=== PATIENT | female | born 1975 | race Two or more races ===

== ENCOUNTER 2018-04-26 14:38 | Emergency (ER) | payer SELFPAY ==
[~2018-04-26] VITALS: Ht 160 cm; Wt 113.4 kg
[2018-04-26 15:10] VITALS: BP 126/60
[2018-04-26 15:32] LABS: BILIRUBIN,URINE NEGATIVE (NEG); CLARITY,URINE CLEAR; NITRITE,URINE NEGATIVE (NEG); PROTEIN,URINE NEGATIVE (NEG-TRACE); UROBILINOGEN,URINE 0.2 mg/dL (0.2 mg/dL)
[2018-04-26] MEDS ORDERED: IV NORMAL SALINE 1000ML BAG 1,000 ML IV ONE (15:45)
[2018-04-26] MEDS ORDERED: ALBUTEROL SULFATE 2.5 MG/3 ML NEBU. NEB ONE (15:45)
--- NOTE | 2018-04-26 15:48 | PHYS DOC ---
Past Medical History Past Medical History: No Pertinent History Past Surgical History: No Surgical History Alcohol Use: None Drug Use: None Adult General Chief Complaint Chief Complaint: FEVER HPI HPI Patient is a 42 year old female who presents to emergency room with complaints of a fever for the last 5 days. She states that this morning she vomited 2 and complains of epigastric pain. Pain is currently a 9 out of 10 on pain scale. She reports burning with urination and denies any foul odor to her urine. She also reports low back pain with shortness of breath, headache, sore throat, and mild ear pain. She denies any runny nose, nasal congestion, cough, or diarrhea. She states that she last took 800 mg of ibuprofen this morning for relief of her fever. She states that ibuprofen helps to relieve the fever for about 6 hours but then it wears off Review of Systems Review of Systems Constitutional: Reports fever and chills x5 days [] Eyes: Denies change in visual acuity, redness, or eye pain [] HENT: Denies nasal congestion, reports sore throat, and ear pain Respiratory: Denies cough or wheezing, reports shortness of breath with activity Cardiovascular: Denies chest pain GI: Denies bloody stools or diarrhea; reports epigastric abdominal pain with nausea and vomiting x2 today : Denies hematuria, foul smelling urine, or increased frequency, reports dysuria [] Integument: Denies rash or skin lesions [] Neurologic: Denies focal weakness or sensory changes, reports frontal headache Current Medications Current Medications Current Medications Medications (Trade) Dose Ordered Sig/Nii Start Time Stop Time Status Last Admin Dose Admin Acetaminophen (Tylenol) 1,000 mg 1X ONCE 04/26/18 16:15 04/26/18 16:16 DC 04/26/18 16:01 1,000 MG Albuterol Sulfate (Ventolin Neb Soln) 2.5 mg 1X ONCE 04/26/18 15:45 04/26/18 15:46 DC 04/26/18 16:25 2.5 MG Ceftriaxone Sodium 50 ml @ 100 mls/hr 1X ONCE 04/26/18 17:00 04/26/18 17:29 DC 04/26/18 17:00 100 MLS/HR Morphine Sulfate (Morphine Sulfate) 4 mg 1X ONCE 04/26/18 16:15 04/26/18 16:16 DC 04/26/18 16:02 4 MG Ondansetron HCl (Zofran) 4 mg 1X ONCE 04/26/18 16:15 04/26/18 16:16 DC 04/26/18 16:01 4 MG Sodium Chloride 1,000 ml @ 1,000 mls/hr 1X ONCE 04/26/18 15:45 04/26/18 16:44 DC 04/26/18 16:01 1,000 MLS/HR Allergies Allergies Allergies Coded Allergies Type Severity Reaction Last Updated Verified No Known Drug Allergies 04/26/18 No Physical Exam Physical Exam Constitutional: Well developed, well nourished, no acute distress, non-toxic appearance, obese. [] HENT: Normocephalic, atraumatic, bilateral external ears normal, bilateral TM's normal, oropharynx moist, no oral exudates, nose normal. [] Eyes: PERRLA, conjunctiva normal, no discharge. [] Neck: Normal range of motion, no tenderness, supple, no stridor. [] Cardiovascular:Heart rate regular rhythm, no murmur [] Lungs & Thorax: Bilateral breath sounds clear to auscultation, diminished in posterior bases bilat [] Abdomen: Bowel sounds normal, soft, no masses, no pulsatile masses; epigastric tenderness to palpation, RLQ tender to palpation. Skin: Warm, dry, no erythema, no rash. [] Back: R CVA tenderness, R flank pain Extremities: No no cyanosis, ROM intact, no edema. [] Neurologic: Alert and oriented X 3, normal motor function, normal sensory function, no focal deficits noted. [] Psychologic: Affect normal, judgement normal, mood normal. [] Current Patient Data Vital Signs Vital Signs Date Time Temp Pulse Resp B/P (MAP) Pulse Ox O2 Delivery O2 Flow Rate FiO2 04/26/18 16:26 Room Air 04/26/18 16:02 20 98 04/26/18 15:10 101.2 105 126/60 (82) 101.2 Lab Values Laboratory Tests Test 04/26/18 15:05 04/26/18 15:17 04/26/18 15:50 Urine Collection Type Void Urine Color [place] Urine Clarity Clear Urine pH 7.0 Urine Specific [place] <=1.005 Urine Protein Negative mg/dL (NEG-TRACE) Urine Glucose (UA) Negative mg/dL (NEG) Urine Ketones (Stick) Negative mg/dL (NEG) Urine Blood Large (NEG) Urine Nitrite Negative (NEG) Urine Bilirubin Negative (NEG) Urine Urobilinogen Dipstick 0.2 mg/dL (0.2 mg/dL) Urine Leukocyte Esterase Small (NEG) Urine RBC 11-20 /HPF (0-2) Urine WBC Occ /HPF (0-4) Urine Squamous Epithelial Cells Few /LPF Urine Bacteria Few /HPF (0-FEW) POC Urine HCG, Qualitative Hcg negative (Negative) White Blood Count 8.3 x10^3/uL (4.0-11.0) Red Blood Count 3.99 x10^6/uL (3.50-5.40) Hemoglobin 11.3 g/dL (12.0-15.5) L Hematocrit 33.8 % (36.0-47.0) L Mean Corpuscular Volume 85 fL (79-100) Mean Corpuscular Hemoglobin 28 pg (25-35) Mean Corpuscular Hemoglobin Concent 33 g/dL (31-37) Red Cell Distribution Width 15.6 % (11.5-14.5) H Platelet Count 272 x10^3/uL (140-400) Neutrophils (%) (Auto) 74 % (31-73) H Lymphocytes (%) (Auto) 14 % (24-48) L Monocytes (%) (Auto) 11 % (0-9) H Eosinophils (%) (Auto) 0 % (0-3) Basophils (%) (Auto) 0 % (0-3) Neutrophils # (Auto) 6.1 x10^3uL (1.8-7.7) Lymphocytes # (Auto) 1.2 x10^3/uL (1.0-4.8) Monocytes # (Auto) 0.9 x10^3/uL (0.0-1.1) Eosinophils # (Auto) 0.0 x10^3/uL (0.0-0.7) Basophils # (Auto) 0.0 x10^3/uL (0.0-0.2) Sodium Level 133 mmol/L (136-145) L Potassium Level 3.6 mmol/L (3.5-5.1) Chloride Level 101 mmol/L (98-107) Carbon Dioxide Level 27 mmol/L (21-32) Anion Gap 5 (6-14) L Blood Urea Nitrogen 7 mg/dL (7-20) Creatinine 0.7 mg/dL (0.6-1.0) Estimated GFR (Cockcroft-Gault) 91.3 BUN/Creatinine Ratio 10 (6-20) Glucose Level 104 mg/dL (70-99) H Calcium Level 9.0 mg/dL (8.5-10.1) Total Bilirubin 0.6 mg/dL (0.2-1.0) Aspartate Amino Transferase (AST) 31 U/L (15-37) Alanine Aminotransferase (ALT) 74 U/L (14-59) H Alkaline Phosphatase 138 U/L (46-116) H Total Protein 7.5 g/dL (6.4-8.2) Albumin 3.1 g/dL (3.4-5.0) L Albumin/Globulin Ratio 0.7 (1.0-1.7) L Lipase 112 U/L (73-393) Laboratory Tests 04/26/18 15:50 Laboratory Tests 04/26/18 15:50 Microbiology 04/26/18 Urine Culture - Final, Complete 04/26/18 Urine Culture Result 1 (CARRILLO) - Final, Complete EKG EKG [] Radiology/Procedures Radiology/Procedures IMAGING REPORT Signed PATIENT: TORSTEN BENSON ACCOUNT: [id number] : 1975 LOCATION: ER AGE: 42 SEX: F EXAM STATUS: REG ER ORD. PHYSICIAN: GUS TREJO APRN REASON: fever, diminished lung sounds PROCEDURE: CHEST PA & LATERAL EXAM: Chest, 2 views. HISTORY: Epigastric pain. COMPARISON: None. FINDINGS: Frontal and lateral views of the chest are obtained. There is no infiltrate, pleural effusion or pneumothorax. The heart is normal in size. There is suspected bilateral lower lobe atelectasis. IMPRESSION: Suspected bilateral lower lobe atelectasis. Electronically signed by: Monae Knight MD (04/26/2018 3:55 PM) [facility] DICTATED and SIGNED BY: MONAE KNIGHT MD DATE: 04/26/18 1554 []IMAGING REPORT Signed PATIENT: TORSTEN BENSON ACCOUNT: [id number] : 1975 LOCATION: ER AGE: 42 SEX: F EXAM STATUS: REG ER ORD. PHYSICIAN: GUS TREJO APRN REASON: R flank pain, hematuria PROCEDURE: CT ABDOMEN PELVIS WO CONTRAST Abdominal and Pelvis CT, Without Contrast: History: Hematuria and right flank pain. Comparison: None. Procedure: Axial images are obtained of the abdomen and pelvis, without IV or oral contrast. CT Abdomen without Contrast: Findings: Evaluation of solid organs is limited without contrast. Evaluation of stomach and bowel is limited without oral contrast. Liver: Normal. Spleen: Normal. Pancreas: Normal. Adrenal Glands: Normal. Kidneys: There is mild hydronephrosis bilaterally. There is mild perinephric edema on the left. There is a stone in the gallbladder but no gallbladder wall thickening or surrounding fluid or inflammation. There is no free air or free fluid. There is no lymphadenopathy. Impression: Please see CT Pelvis without Contrast. End Impression. CT Pelvis without Contrast: Findings: The urinary bladder appears normal. There is no free fluid. There is no lymphadenopathy. There is no pericolonic inflammation identified. The appendix is normal. The uterus appears within normal limits. The ovaries are not well seen and likely small. Impression: There is mild hydronephrosis bilaterally however there is no radiopaque stones seen. There is also perinephric edema on the left. These findings are curious given the symptoms are on the right. Pyelonephritis or a nonopaque stone or recent passage of a stone is possible. Clinical correlation is suggested. End impression PQRS Compliance Statement: One or more of the following individualized dose reduction techniques were utilized for this examination: 1. Automated exposure control 2. Adjustment of the mA and/or kV according to patient size 3. Use of iterative reconstruction technique Electronically signed by: Elliott Mittal III, MD (04/26/2018 6:14 PM) [facility] DICTATED and SIGNED BY: ELLIOTT MITTAL III, MD DATE: 04/26/181808 Course & Med Decision Making Course & Med Decision Making Pertinent Labs and Imaging studies reviewed. (See chart for details) Patient is a 42-year-old female who presents to the emergency room with complaints of right flank pain, and fever for 5 days. Her vital signs are stable in the emergency department. Her lab work revealed a hemoglobin of 11.3, hematocrit of 33.8, sodium of 133, ALT of 74, alk phosphatase of 138, and large amount of blood present in her urine. A CT was concerning for pyelonephritis. There was no evidence of an obstructing stone. Patient reported relief of her pain after IV fluids, pain medication, Tylenol, and Zofran. Her fever resolved in the department. Patient clinically appears to be pyelonephritis, treated as such.Patient verbalized an understanding of home care, medications, follow-up, and return to ED instructions and was in agreement with the plan of care. MARIANA Fernandez saw and evaluated this patient in the emergency room. Differential would include an obstructing kidney stone given the red blood cells and fever. With back pain. CT abdomen and pelvis is currently pending. I did speak with ALEAH with plan to do a right upper quadrant ultrasound if the CT is negative. Dragon Disclaimer Dragon Disclaimer This electronic medical record was generated, in whole or in part, using a voice recognition dictation system. Departure Departure Impression: Primary Impression: Pyelonephritis Disposition: 01 HOME, SELF-CARE Condition: STABLE Referrals: NO PCP (PCP) Patient Instructions: Pyelonephritis, Adult, [id number] Additional Instructions: Fill the prescription and use as directed. Increase clear fluids. Tylenol as needed for pain/fever. Follow up with your doctor in 1-2 days. Return to ER if symptoms worsen. Scripts Levofloxacin (LEVAQUIN) 750 Mg Tablet 1 TAB PO DAILY for 7 Days, #7 TAB 0 Refills Prov: GUS TREJO APRN 04/26/18 GUS TREJO APRN Apr 26, 2018 15:48 CLARICE PEÑA MD Apr 26, 2018 17:03
[2018-04-26 15:51] LABS: COLOR,URINE PINK
--- NOTE | 2018-04-26 15:58 | RAD ---
EXAM: Chest, 2 views. HISTORY: Epigastric pain. COMPARISON: None. FINDINGS: Frontal and lateral views of the chest are obtained. There is no infiltrate, pleural effusion or pneumothorax. The heart is normal in size. There is suspected bilateral lower lobe atelectasis. IMPRESSION: Suspected bilateral lower lobe atelectasis. Electronically signed by: Monae Gallagher MD (04/26/2018 3:55 PM) [facility]
[2018-04-26 15:59] LABS: BACTERIA,URINE FEW /HPF (0-FEW); SQUAMOUS EPITHELIAL CELL,UR FEW /LPF; WBC,URINE OCC /HPF (0-4)
[2018-04-26 16:09] LABS: BASO % 0 % (0-3); EOS % 0 % (0-3); HEMATOCRIT 33.8 % (36.0-47.0); HEMOGLOBIN 11.3 g/dL (12.0-15.5); LYMPH # 1.2 x10^3/uL (1.0-4.8); LYMPH % 14 % (24-48); MEAN CORPUSCULAR HEMOGLOBIN 28 pg (25-35); MEAN CORPUSCULAR HGB CONC 33 g/dL (31-37); MEAN CORPUSCULAR VOLUME 85 fL (79-100); MONO # 0.9 x10^3/uL (0.0-1.1); MONO % 11 % (0-9); NEUT # 6.1 x10^3uL (1.8-7.7); NEUT % 74 % (31-73); PLATELET COUNT 272 x10^3/uL (140-400); RED BLOOD COUNT 3.99 x10^6/uL (3.50-5.40); RED CELL DISTRIBUTION WIDTH 15.6 % (11.5-14.5); WHITE BLOOD COUNT 8.3 x10^3/uL (4.0-11.0)
[2018-04-26] MEDS ORDERED: ONDANSETRON PF 4 MG/2 ML VIAL. IV ONE (16:15)
[2018-04-26] MEDS ORDERED: MORPHINE SULFATE 4 MG/ML VIAL. IV ONE (16:15)
[2018-04-26] MEDS ORDERED: ACETAMINOPHEN 500 MG TABLET PO ONE (16:15)
[2018-04-26 16:18] LABS: CREATININE 0.7 mg/dL (0.6-1.0); GFR 91.3; POTASSIUM 3.6 mmol/L (3.5-5.1)
[2018-04-26 16:24] LABS: ALBUMIN 3.1 g/dL (3.4-5.0); ALBUMIN/GLOBULIN RATIO 0.7 (1.0-1.7); TOTAL BILIRUBIN 0.6 mg/dL (0.2-1.0); TOTAL PROTEIN 7.5 g/dL (6.4-8.2)
--- NOTE | 2018-04-26 18:17 | RAD ---
Abdominal and Pelvis CT, Without Contrast: History: Hematuria and right flank pain. Comparison: None. Procedure: Axial images are obtained of the abdomen and pelvis, without IV or oral contrast. CT Abdomen without Contrast: Findings: Evaluation of solid organs is limited without contrast. Evaluation of stomach and bowel is limited without oral contrast. Liver: Normal. Spleen: Normal. Pancreas: Normal. Adrenal Glands: Normal. Kidneys: There is mild hydronephrosis bilaterally. There is mild perinephric edema on the left. There is a stone in the gallbladder but no gallbladder wall thickening or surrounding fluid or inflammation. There is no free air or free fluid. There is no lymphadenopathy. Impression: Please see CT Pelvis without Contrast. End Impression. CT Pelvis without Contrast: Findings: The urinary bladder appears normal. There is no free fluid. There is no lymphadenopathy. There is no pericolonic inflammation identified. The appendix is normal. The uterus appears within normal limits. The ovaries are not well seen and likely small. Impression: There is mild hydronephrosis bilaterally however there is no radiopaque stones seen. There is also perinephric edema on the left. These findings are curious given the symptoms are on the right. Pyelonephritis or a nonopaque stone or recent passage of a stone is possible. Clinical correlation is suggested. End impression PQRS Compliance Statement: One or more of the following individualized dose reduction techniques were utilized for this examination: 1. Automated exposure control 2. Adjustment of the mA and/or kV according to patient size 3. Use of iterative reconstruction technique Electronically signed by: Олег Pike III, MD (04/26/2018 6:14 PM) [id number]
[2018-04-26] MEDS ORDERED: LEVO750T31 PO (19:24)
== END 2018-04-26 19:35 | disposition home or self-care (01) ==
LOC: ER 14:38
DX: N12 Tubulo-interstitial nephritis, not specified as acute or chronic (principal); R06.02 Shortness of breath; R51 Headache; J02.9 Acute pharyngitis, unspecified; H92.09 Otalgia, unspecified ear
CPT/HCPCS: 36415; 71046; 74176; 80053; 81001; 81025; 83690; 85025; 87086; 94640; 96361; 96365; 96375; 99285; J0690; J2270; J2405; J7030; J7613